=== PATIENT | female | born 1940 | race Caucasian/White ===

== ENCOUNTER 2017-12-07 14:49 | Emergency (ER) | payer MEDICARE, BC ==
--- NOTE | 2017-12-07 16:20 | RAD ---
INDICATION: Hypertension in a dialysis patient COMPARISON: Chest x-ray dated April 29, 2015 TECHNIQUE: Single AP portable view of the chest was obtained. FINDINGS: Image quality is compromised due to the relative inferiority of a portable chest x-ray. There has been interval removal of the right internal jugular vein hemodialysis catheter. The heart and mediastinum exhibit normal size and contour. The lungs are grossly clear. There is no evidence of a large pleural effusion. Visualized bones are normal for the patient's age. IMPRESSION: No radiographic evidence for acute cardiopulmonary abnormality on this portable chest x-ray.
[2017-12-07 16:35] LABS: ABS Basophils 0.1 10^3/ul (0-0.2); ABS Eosinophils 0.1 10^3/ul (0-0.6); ABS Lymphocytes 1.7 10^3/ul (1.0-4.8); ABS Monocytes 0.6 10^3/ul (0-0.8); ABS Neutrophils 5.2 10^3/ul (1.5-7.7); ABS Nucleated RBC 0 10^3/ul; Eosinophil % 1.8 % (0-6); Hematocrit 30 % (35-47); Hemoglobin 10.4 g/dl (12.0-16.0); Lymphocyte % 22.2 % (25-47); Mean Corpuscular HGB Conc 35 g/dl (31-36); Mean Corpuscular Hemoglobin 32 pg (27-31); Mean Corpuscular Volume 94 fL (80-97); Mean Platelet Volume 8 um3 (7.4-10.4); Nucleated Red Blood Cells % 0.1; Platelet Count 158 10^3/ul (150-450); Red Cell Distribution Width 13 % (10.5-15); White Blood Count 7.7 10^3/ul (3.5-10.8)
[2017-12-07 16:47] LABS: EGFR Non-African American 12.4 (>60)
[2017-12-07 16:56] LABS: INR 0.93 (0.77-1.02)
[2017-12-07] MEDS ORDERED: Labetalol IV* 5 MG/ML 20 ML VIAL IV PUSH ONE ×3 (17:13→18:22)
[2017-12-07] MEDS ORDERED: oxyCODONE/Acetamin 5/325 MG* TAB PO ONE (17:48)
[2017-12-07 19:49] VITALS: BP 169/61
--- NOTE | 2017-12-07 19:51 | ED ---
Luis Ojeda Angela, scribed for Kathie Pacheco MD on 12/07/17 at 1548 . Hypertension - HPI Summary HPI Summary: This pt is a 77 y/o female presenting to [facility] c/o hypertension, headache, and feeling hot today. Pt is a dialysis pt, Dr. Cates is her economics instructor. Pt last had dialysis today and has felt ill since she finished treatment. Pt went in with 72.2 kg and came out with 71.8 kg after dialysis. Pt notes her dry weight is a little lower usually. She states she did not go to dialysis 3 days ago ( 12/04/17) due to the bad weather. Pt today denies chest pain. Pt has peritoneal dialysis on Tuesdays, , and Saturdays. She is scheduled to have a fistulagram on 2017. PMHx: end stage renal disease, perforated diverticulosis. Pt reports she started peritoneal dialysis in 2011. She denies any hx of CHF. No kidney disease in her family history. - History of Current Complaint Chief Complaint: EDHypertension Stated Complaint: HIGH BP Time Seen by Provider: 12/07/17 15:44 Hx Obtained From: Patient Onset/Duration: Started Hours Ago, Still Present Timing: Lasting Hours Aggravating Factor(s): Other: - dialysis today Alleviating Factor(s): Nothing Associated Signs & Symptoms: Headaches, Other: - elevated BP - Allergies/Home Medications Allergies/Adverse Reactions: Allergies Allergy/AdvReac Type Severity Reaction Status Date / Time Bromfenac [From Duract] Allergy Unknown UNK Verified 12/07/17 14:57 Adhesive Tape [Paper Tape] Allergy SKIN Verified 12/07/17 14:57 IRRITATION Aloe Allergy Itching Verified 12/07/17 14:57 Hepatitis B Antigen Allergy SHAKINESS Verified 12/07/17 14:57 [From Recombivax-HB] TEMARIL Allergy Intermediate SYNCOPE Uncoded 12/07/17 14:57 PMH/Surg Hx/FS Hx/Imm Hx Endocrine/Hematology History: Reports: Hx Diabetes - ON INSULIN FOR, Hx Thyroid Disease - HYPOTHYROID, Hx Anemia Cardiovascular History: Reports: Hx Hypertension - ON MEDICATION FOR, Hx Peripheral Vascular Disease - Vasculitis, Other Cardiovascular Problems/ Disorders - VASCULITIS- LEGS Respiratory History: Reports: Hx Asthma, Other Respiratory Problems/Disorders - Bronchitis in past; not chronic GI History: Reports: Hx Ulcer - HX OF BLEEDING ULCER ABOUT 5 YEARS AGO History: Reports: Hx Chronic Renal Failure - W/ Peritoneal Dialysis nightly Musculoskeletal History: Reports: Hx Bursitis - LEFT HIP, Other Musculoskeletal History - Sciatica Sensory History: Reports: Hx Cataracts, Hx Contacts or Glasses - READING Denies: Hx Hearing Aid Opthamlomology History: Reports: Hx Cataracts, Hx Contacts or Glasses - READING - Cancer History Hx Chemotherapy: No Hx Radiation Therapy: No - Surgical History Surgery Procedure, Year, and Place: Cholecystectomy AND APPENDECTOMY-- [place]. [id number]. KIDNEY BIOPSY AND BONE MARROW BIOPSY. EXPLORATORY AND COLOSTOMY-03/2015 Hx Anesthesia Reactions: No Infectious Disease History: No Infectious Disease History: Reports: Hx Hepatitis - A TEENAGER Denies: Traveled Outside the [place] in Last 30 Days - Family History Known Family History: Positive: Diabetes, Other - CA Negative: Renal Disease - no FHx reported. - Social History Alcohol Use: Occasionally Substance Use Type: Reports: None Smoking Status (MU): Former Smoker Amount Used/How Often: <1 PPD X 7 YEARS Have You Smoked in the Last Year: No Review of Systems Constitutional: Other - feeling hot Negative: Fever Cardiovascular: Other - Hypertension Negative: Chest Pain Positive: Headache All Other Systems Reviewed And Are Negative: Yes Physical Exam - Summary Physical Exam Summary: Appearance: Ill-appearing, no pain distress, Well-nourished Skin: Warm, color reflects adequate perfusion Head: Normal Head/Face inspection Eyes: Conjunctiva clear ENT: Normal ENT inspection Neck: Supple, no nodes, no JVD Respiratory: Lungs clear, Normal breath sounds, no respiratory distress Cardio: RRR, No murmur, pulses normal, brisk capillary refill Abdomen: soft, nontender Bowel sounds: present Musculoskeletal: Strength Intact/ ROM intact. No calf tenderness. No edema. Left arm: good thrill and bruit. Neuro: Alert, muscle tone normal, facial symmetry, speech normal, sensory/motor intact Psychological: Normal Triage Information Reviewed: Yes Vital Signs On Initial Exam: Initial Vitals Temp Pulse Resp BP Pulse Ox 97.4 F 59 20 216/80 96 12/07/17 14:54 12/07/17 14:54 12/07/17 14:54 12/07/17 14:54 12/07/17 14:54 Vital Signs Reviewed: Yes Diagnostics - Vital Signs Vital Signs Temp Pulse Resp BP Pulse Ox 12/07/17 14:54 97.4 F 59 20 216/80 96 - Laboratory Lab Results: Lab Results 12/07/17 12/07/17 12/07/17 Range/Units 16:16 16:16 16:16 WBC 7.7 (3.5-10.8) 10^3/ul RBC 3.20 L (4.0-5.4) 10^6/ul Hgb 10.4 L (12.0-16.0) g/dl Hct 30 L (35-47) % MCV 94 (80-97) fL MCH 32 H (27-31) pg MCHC 35 (31-36) g/dl RDW 13 (10.5-15) % Plt Count 158 (150-450) 10^3/ul MPV 8 (7.4-10.4) um3 Neut % (Auto) 67.2 (38-83) % Lymph % (Auto) 22.2 L (25-47) % Jennings % (Auto) 8.1 (1-9) % Eos % (Auto) 1.8 (0-6) % Baso % (Auto) 0.7 (0-2) % Absolute Neuts (auto) 5.2 (1.5-7.7) 10^3/ul Absolute Lymphs (auto) 1.7 (1.0-4.8) 10^3/ul Absolute Monos (auto) 0.6 (0-0.8) 10^3/ul Absolute Eos (auto) 0.1 (0-0.6) 10^3/ul Absolute Basos (auto) 0.1 (0-0.2) 10^3/ul Absolute Nucleated RBC 0 10^3/ul Nucleated RBC % 0.1 INR (Anticoag Therapy) 0.93 (0.77-1.02) APTT 27.0 (26.0-36.3) seconds Sodium (133-145) mmol/L Potassium (3.5-5.0) mmol/L Chloride (101-111) mmol/L Carbon Dioxide (22-32) mmol/L Anion Gap (2-11) mmol/L BUN (6-24) mg/dL Creatinine (0.51-0.95) mg/dL Est GFR ( Amer) (>60) Est GFR (Non-Af Amer) (>60) BUN/Creatinine Ratio (8-20) Glucose (70-100) mg/dL Lactic Acid (0.5-2.0) mmol/L Calcium (8.6-10.3) mg/dL Total Bilirubin (0.2-1.0) mg/dL AST (13-39) U/L ALT (7-52) U/L Alkaline Phosphatase (34-104) U/L Total Creatine Kinase (10-223) U/L CK-MB (CK-2) (0.6-6.3) ng/mL Troponin I (<0.04) ng/mL B-Natriuretic Peptide 543 H ( - 100) pg/mL Total Protein (6.4-8.9) g/dL Albumin (3.2-5.2) g/dL Globulin (2-4) g/dL Albumin/Globulin Ratio (1-3) Influenza A (Rapid) (Negative) Influenza B (Rapid) (Negative) 12/07/17 12/07/17 12/07/17 Range/Units 16:16 16:16 17:45 WBC (3.5-10.8) 10^3/ul RBC (4.0-5.4) 10^6/ul Hgb (12.0-16.0) g/dl Hct (35-47) % MCV (80-97) fL MCH (27-31) pg MCHC (31-36) g/dl RDW (10.5-15) % Plt Count (150-450) 10^3/ul MPV (7.4-10.4) um3 Neut % (Auto) (38-83) % Lymph % (Auto) (25-47) % Jennings % (Auto) (1-9) % Eos % (Auto) (0-6) % Baso % (Auto) (0-2) % Absolute Neuts (auto) (1.5-7.7) 10^3/ul Absolute Lymphs (auto) (1.0-4.8) 10^3/ul Absolute Monos (auto) (0-0.8) 10^3/ul Absolute Eos (auto) (0-0.6) 10^3/ul Absolute Basos (auto) (0-0.2) 10^3/ul Absolute Nucleated RBC 10^3/ul Nucleated RBC % INR (Anticoag Therapy) (0.77-1.02) APTT (26.0-36.3) seconds Sodium 133 (133-145) mmol/L Potassium 3.2 L (3.5-5.0) mmol/L Chloride 89 L (101-111) mmol/L Carbon Dioxide 35 H (22-32) mmol/L Anion Gap 9 (2-11) mmol/L BUN 27 H (6-24) mg/dL Creatinine 3.56 H (0.51-0.95) mg/dL Est GFR ( Amer) 15.9 (>60) Est GFR (Non-Af Amer) 12.4 (>60) BUN/Creatinine Ratio 7.6 L (8-20) Glucose 98 (70-100) mg/dL Lactic Acid 0.7 (0.5-2.0) mmol/L Calcium 8.4 L (8.6-10.3) mg/dL Total Bilirubin 0.40 (0.2-1.0) mg/dL AST 16 (13-39) U/L ALT 10 (7-52) U/L Alkaline Phosphatase 82 (34-104) U/L Total Creatine Kinase 40 (10-223) U/L CK-MB (CK-2) 1.1 (0.6-6.3) ng/mL Troponin I 0.01 (<0.04) ng/mL B-Natriuretic Peptide ( - 100) pg/mL Total Protein 6.8 (6.4-8.9) g/dL Albumin 3.6 (3.2-5.2) g/dL Globulin 3.2 (2-4) g/dL Albumin/Globulin Ratio 1.1 (1-3) Influenza A (Rapid) Negative (Negative) Influenza B (Rapid) Negative (Negative) Result Diagrams: 12/07/17 16:16 12/07/17 16:16 Lab Statement: Any lab studies that have been ordered have been reviewed, and results considered in the medical decision making process. - Radiology Chest XR Xray Interpretation: No Acute Changes - IMPRESSION: No radiographic evidence for acute cardiopulmonary abnormality on this portable chest x-ray. Dr. Pacheco has reviewed this radiology report. Radiology Interpretation Completed By: Radiologist - EKG 15:52 Cardiac Rate: NL EKG Rhythm: Sinus Rhythm - at [address] Segment: Non-Specific Ectopy: None EKG Interpretation: with 4:1 block. Nml IVCT. prolonged QTc (507). Left axis (- 16). EKG Comparison: No Significant Change - no significnat change compared to . Re-Evaluation - Re-Evaluation First Eval Re-Evaluation Time: 17:24 Comment: I discussed Dr. Cates's recommendations with the pt and family. She states her headache has resolved currently. Blood pressure currently is 203/71. Hypertension Course/Dx - Course Course Of Treatment: Pt medications reviewed this visit. Allergies noted. High blood pressure noted. I discussed pt care with Dr. Cates, economics instructor, who reports if blood pressure is under 170 pt can be discharged home. He also states to give the pt pain relief for headache. In the ED course, the pt was given 30 mg Labetalol IV. Pt's blood pressure after Labetalol was 169/61. Pt states her headache has resolved as well. Therefore, pt will be discharged to home. - Diagnoses Provider Diagnoses: Elevate BP under poor control - Physician Notifications Discussed Care Of Patient With: Brandan Cates Time Discussed With Above Provider: 17:18 Instructed by Provider To: Other - I discussed pt care with Dr. Cates, economics instructor, who reports if blood pressure is under 170 pt can be discharged home. Discharge - Discharge Plan Condition: Stable Disposition: HOME Patient Education Materials: Hypertension (ED) Referrals: Erica Vidal MD [Primary Care Provider] - 2 Days Additional Instructions: Keep your scheduled appointment for dialysis. We have sent you home with a percocet tablet that you may take if your headache returns. We gave you labetalol 30mg total in an IV to lower your blood pressure. Your flu swab was negative. Return to the ER if you have any new or worsening symptoms. The documentation as recorded by the Luis barnett Angela accurately reflects the service I personally performed and the decisions made by me, Kathie Pacheco MD.
== END 2017-12-07 19:48 | disposition home or self-care (01) ==
LOC: ED 14:49
DX: I12.0 Hypertensive chronic kidney disease with stage 5 chronic kidney disease or end stage renal disease (principal); E11.22 Type 2 diabetes mellitus with diabetic chronic kidney disease; N18.6 End stage renal disease; Z99.2 Dependence on renal dialysis; Z79.4 Long term (current) use of insulin; Z87.891 Personal history of nicotine dependence; Z88.8 Allergy status to other drugs, medicaments and biological substances
CPT/HCPCS: 36415; 71045; 80053; 82550; 82553; 83605; 83880; 84484; 85025; 85610; 85730; 87502; 93005; 96374; 96376; 99283

== ENCOUNTER 2018-08-05 14:35 | Inpatient (IN) | payer MEDICARE, BC ==
--- NOTE | 2018-08-05 15:24 | ED ---
Shortness of Breath - HPI Summary HPI Summary: This patient is a 77 year old F presenting to [facility] accompanied by with her with a chief complaint of SOB since last night at 1900. The patient rates the pain 0/10 in severity. Patient reports cough for the last 3 weeks. Patient denies fever and chills. Pt is on dialysis MWF and just had a round today. No hx of asthma and COPD. - History of Current Complaint Chief Complaint: EDShortnessOfBreath Time Seen by Provider: 08/05/18 15:14 Hx Obtained From: Patient Onset/Duration: Still Present Timing: Constant Current Severity: Mild Dyspnea At: Rest Associated Signs & Symptoms: Negative - fever and chills, Cough (Nonproductive) - Allergy/Home Medications Allergies/Adverse Reactions: Allergies Allergy/AdvReac Type Severity Reaction Status Date / Time Adhesive Tape [Paper Tape] Allergy SKIN Verified 12/07/17 14:57 IRRITATION aloe Allergy Itching Verified 08/05/18 15:20 bromfenac Allergy Unknown Verified 08/05/18 15:21 Reaction Details hepatitis B virus vaccine, Allergy Unknown Verified 08/05/18 15:21 recombin Reaction Details TEMARIL Allergy Intermediate SYNCOPE Uncoded 12/07/17 14:57 Home Medications: Home Medications Atorvastatin* [Lipitor*] 40 mg PO DAILY 08/05/18 [History Confirmed 08/05/18] Cinacalcet TAB* [Sensipar TAB*] 60 mg PO DAILY 08/05/18 [History Confirmed 08/05] Furosemide TAB* [Lasix TAB*] 40 mg PO DAILY 08/05/18 [History Confirmed 08/05/18 ] Insulin GLARGINE(*) [Lantus(*)] 21 units SUBCUT DAILY 08/05/18 [History Confirmed 08/05/18] Insulin LISPRO* [HumaLOG*] 4 units SUBCUT 1700 08/05/18 [History Confirmed 08/05] Levothyroxine TAB* [Synthroid TAB*] 100 mcg PO DAILY 08/05/18 [History Confirmed 08/05/18] Metoprolol Succinate XL TAB* [Toprol XL TAB*] 25 mg PO QAM 08/05/18 [History Confirmed 08/05/18] Metoprolol Succinate XL TAB* [Toprol XL TAB*] 50 mg PO QPM 08/05/18 [History Confirmed 08/05/18] NIFEdipine ER TAB* [Procardia Xl TAB*] 60 mg PO DAILY 08/05/18 [History Confirmed 08/05/18] Omeprazole CAP* [Prilosec CAP* 20 MG] 20 mg PO DAILY 08/05/18 [History Confirmed 08/05/18] hydrALAZINE TAB* [Apresoline TAB*] 20 mg PO TID 08/05/18 [History Confirmed ] hydrOXYzine HCL TAB* [Atarax 10 MG TAB*] 10 mg PO DAILY 08/05/18 [History Confirmed 08/05/18] PMH/Surg Hx/FS Hx/Imm Hx Endocrine/Hematology History: Reports: Hx Diabetes - ON INSULIN FOR, Hx Thyroid Disease - HYPOTHYROID, Hx Anemia Cardiovascular History: Reports: Hx Hypertension - ON MEDICATION FOR, Hx Peripheral Vascular Disease - Vasculitis, Other Cardiovascular Problems/ Disorders - VASCULITIS- LEGS Respiratory History: Reports: Hx Asthma, Other Respiratory Problems/Disorders - Bronchitis in past; not chronic GI History: Reports: Hx Ulcer - HX OF BLEEDING ULCER ABOUT 5 YEARS AGO History: Reports: Hx Chronic Renal Failure - W/ Peritoneal Dialysis nightly Musculoskeletal History: Reports: Hx Bursitis - LEFT HIP, Other Musculoskeletal History - Sciatica Sensory History: Reports: Hx Cataracts, Hx Contacts or Glasses - READING Denies: Hx Hearing Aid Opthamlomology History: Reports: Hx Cataracts, Hx Contacts or Glasses - READING - Cancer History Hx Chemotherapy: No Hx Radiation Therapy: No - Surgical History Surgery Procedure, Year, and Place: Cholecystectomy AND APPENDECTOMY-- [place]. [id number]. KIDNEY BIOPSY AND BONE MARROW BIOPSY. EXPLORATORY AND COLOSTOMY-03/2015 Hx Anesthesia Reactions: No Infectious Disease History: No Infectious Disease History: Reports: Hx Hepatitis - A TEENAGER Denies: Traveled Outside the [place] in Last 30 Days - Family History Known Family History: Positive: Diabetes, Other - CA Negative: Renal Disease - no FHx reported. - Social History Alcohol Use: Occasionally Substance Use Type: Reports: None Smoking Status (MU): Former Smoker Amount Used/How Often: <1 PPD X 7 YEARS Have You Smoked in the Last Year: No Review of Systems Negative: Fever, Chills Positive: Shortness Of Breath, Cough All Other Systems Reviewed And Are Negative: Yes Physical Exam - Summary Physical Exam Summary: VITAL SIGNS: Reviewed. GENERAL: Patient is a well-developed and nourished female who is lying comfortable in the stretcher. Patient is not in any acute respiratory distress. HEAD AND FACE: No signs of trauma. No ecchymosis, hematomas or skull depressions. No sinus tenderness. EYES: PERRLA, EOMI x 2, No injected conjunctiva, no nystagmus. EARS: Hearing grossly intact. Ear canals and tympanic membranes are within normal limits. MOUTH: Oropharynx within normal limits. NECK: Supple, trachea is midline, no adenopathy, no JVD, no carotid bruit, no c- spine tenderness, neck with full ROM. CHEST: Symmetric, no tenderness at palpation LUNGS: decreased breath sounds bilaterally. Rales in both bases. CVS: Regular rate and rhythm, S1 and S2 present, no murmurs or gallops appreciated. ABDOMEN: Soft, non-tender. No signs of distention. No rebound no guarding, and no masses palpated. There is a colostomy bag in the LLQ EXTREMITIES: FROM in all major joints, plus 1 pitting edema in both legs. NEURO: Alert and oriented x 3. No acute neurological deficits. Speech is normal and follows commands. SKIN: Dry and warm Triage Information Reviewed: Yes Vital Signs On Initial Exam: Initial Vitals Temp Pulse Resp BP Pulse Ox 97.9 F 71 22 188/82 89 08/05/18 14:37 08/05/18 14:37 08/05/18 14:37 08/05/18 14:37 08/05/18 14:37 Vital Signs Reviewed: Yes Diagnostics - Vital Signs Vital Signs Temp Pulse Resp BP Pulse Ox 08/05/18 14:37 97.9 F 71 22 188/82 89 - Laboratory Result Diagrams: 08/05/18 15:22 08/05/18 15:22 Lab Statement: Any lab studies that have been ordered have been reviewed, and results considered in the medical decision making process. - Radiology CXR Radiology Interpretation Completed By: Radiologist - CHEST X-RAY FINDINGS ARE MOST INDICATIVE OF CARDIOGENIC PULMONARY EDEMA WITH SMALL BIBASILAR PLEURAL EFFUSIONS. ED physician has reviewed this radiology report. Course/Dx - Course Assessment/Plan: This patient is a 77-year-old female who presents to the emergency department with a chief complaint of having shortness of breath. The patient has history of end-stage renal disease currently in hemodialysis 3 times a week. Wednesday, Wednesday and Wednesday. Today after dialysis the patient continued to have shortness of breath therefore the patient was sent to the emergency department. Patient has been having also a dry cough for about a month. Denies any fever or chills. Denies any chest pain or palpitations. Test results without any significant abnormality except for chronic normocytic normochromic anemia, potassium at 3, carbon dioxide 37, creatinine of 3.18, glucose of 129 and BNP 1679. Chest x-ray impression: Findings indicative of cardiogenic pulmonary edema with a small bite basilar pleural effusion. In the ED course the patient was given Lasix. At this time I discussed my physical exam and findings with Dr. Barros who accepted the patient for admission. She is hemodynamically stable alert and oriented 3. - Diagnoses Provider Diagnoses: CHF exacerbation, Pleural effusion - Physician Notifications Discussed Care of Patient With: Gaby Barros Time Discussed With Above Provider: 16:29 Instructed by Provider To: Admit As Inpatient Discharge - Sign-Out/Discharge Documenting (check all that apply): Patient Departure - admitted - Discharge Plan Condition: Fair Disposition: ADMITTED TO [facility] Referrals: Erica Vidal MD [Primary Care Provider] - - Billing Disposition and Condition Condition: FAIR Disposition: Admitted to [facility] - Attestation Statements Document Initiated by Sissy: Yes Documenting Scribe: Driss You Provider For Whom Sissy is Documenting (Include Credential): Dillon Craven MD Scribe Attestation: Driss Ojeda scribed for Dillon Craven MD on 08/05/18 at 1633. Scribe Documentation Reviewed: Yes Provider Attestation: The documentation as recorded by the Driss barnett accurately reflects the service I personally performed and the decisions made by me, Dillon Craven MD
[2018-08-05 15:33] LABS: ABS Basophils 0.1 10^3/ul (0-0.2); ABS Eosinophils 0.2 10^3/ul (0-0.6); ABS Lymphocytes 1.9 10^3/ul (1.0-4.8); ABS Monocytes 0.7 10^3/ul (0-0.8); ABS Neutrophils 5.6 10^3/ul (1.5-7.7); ABS Nucleated RBC 0 10^3/ul; Eosinophil % 2.7 % (0-6); Hematocrit 33 % (35-47); Hemoglobin 11.1 g/dl (12.0-16.0); Lymphocyte % 22.6 % (25-47); Mean Corpuscular HGB Conc 33 g/dl (31-36); Mean Corpuscular Hemoglobin 31 pg (27-31); Mean Corpuscular Volume 94 fL (80-97); Mean Platelet Volume 7.4 um3 (7.4-10.4); Nucleated Red Blood Cells % 0; Platelet Count 225 10^3/ul (150-450); Red Blood Count 3.54 10^6/ul (4.00-5.40); Red Cell Distribution Width 14 % (10.5-15); White Blood Count 8.6 10^3/ul (3.5-10.8)
[2018-08-05 15:40] LABS: INR 1.02 (0.77-1.02)
[2018-08-05 15:55] LABS: EGFR Non-African American 14.1 (>60)
--- NOTE | 2018-08-05 15:57 | RAD ---
INDICATION: Cough COMPARISON: Similar chest x-ray December 07, 2017 TECHNIQUE: PA and lateral views of the chest were obtained. FINDINGS: There appears to be mild interval development of mild cardiomegaly. There are patchy densities overlying the bilateral lungs. There is bibasilar costophrenic angle blunting on the AP view. On the lateral view there is layering density overlying the dependent posterior and inferior thorax consistent with fluid. Visualized bones are normal for the patient's age. There is no radiographic evidence of free air beneath the diaphragm IMPRESSION: CHEST X-RAY FINDINGS ARE MOST INDICATIVE OF CARDIOGENIC PULMONARY EDEMA WITH SMALL BIBASILAR PLEURAL EFFUSIONS.
[2018-08-05] MEDS ORDERED: Furosemide IV* 10 MG/ML VIAL (40 MG) IV SLOW PU ONE (16:22)
[2018-08-05] MEDS ORDERED: Potassium Chlor TAB* 20 MEQ TAB.ER PO ONE (16:24)
[2018-08-05] MEDS ORDERED: Labetalol IV* 5 MG/ML 20 ML VIAL IV PUSH ONE (17:13)
[2018-08-05] MEDS ORDERED: Al Hydrox/Mg Hydrox/Simet LIQ* 30 ML UDC PO PRN (18:35)
[2018-08-05] MEDS ORDERED: Magnesium Hydroxide LIQ* 30 ML UDC PO PRN (18:35)
[2018-08-05] MEDS ORDERED: Dextrose 50% Syringe 50 ML* 25 GM/50 ML SYRINGE IV PUSH PRN (20:05)
[2018-08-05] MEDS: Heparin VIAL(*) 5000 UNITS/ML VIAL (FIVE THOUSAND) SUBCUT SCH (20:13)
[2018-08-05] MEDS: Vitamin E CAP* 400 UNIT PO SCH (20:13)
[2018-08-05] MEDS ORDERED: hydrALAZINE TAB* 10 MG PO SCH (21:00)
--- NOTE | 2018-08-05 23:25 | HP ---
AMENDED REPORT NOW INCLUDES COSIGNER DESIGNATION - ESIGNED BEFORE ADJUSTMENT CC: Dr. Erica Vidal * HISTORY AND PHYSICAL: DATE OF ADMISSION: 08/05/18 PROVIDER: Maribell Christianson NP PRIMARY CARE PROVIDER: Dr. Vidal. PRIMARY MEDICAL SERVICES ASSISTANT: Brandan Cates MD ATTENDING PHYSICIAN WHILE IN THE HOSPITAL: Dr. Nayely Lemon * (report dictated by Maribell Christianson NP) CHIEF COMPLAINT: Shortness of breath. HISTORY OF PRESENT ILLNESS: Ms. Brady is a 77-year-old female, who carries a past medical history significant for end-stage renal disease, on dialysis, Wednesday, Wednesday, Wednesday; diabetes; hypertension; hypothyroid, who presented to the emergency room today for increased shortness of breath. The patient reports that she went to dialysis today and during yesterday and last evening, she developed some shortness of breath that progressively gotten worse. She does report that she went to dialysis today and tolerated the dialysis well. She does report that she was short of breath prior to the dialysis, but then the shortness of breath improved slightly. She reports that she was unable to sleep last night due to the shortness of breath and that she sat up in the chair for a while and then laid back in her bed. She was able to lay in the bed on 1 pillow, but remained shortness of breath throughout the night and she does report a dry cough x3 weeks. She denies any fevers, chills. Denies any recent sick contacts. Denies any nausea, vomiting, or diarrhea. She denies any swelling. She denies any history of congestive heart failure. She does report increased shortness of breath with exertion that started yesterday. She has no other complaints. Given her increased shortness of breath and hypoxia on room air, we were asked to see and evaluate her in the emergency room. While in the emergency room, the patient had routine lab work drawn. Her potassium was 3.0. Her chest x-ray showed pulmonary edema with bilateral small bibasilar pleural effusions. Again, the patient was found to have room air O2 saturation on admission to the ER of 89%. Due to her shortness of breath and hypoxia, we were asked to see her and evaluate her for admission. PAST MEDICAL HISTORY: Significant for: 1. End-stage renal disease, on dialysis. 2. Diabetes. 3. Hypertension. 4. Hypothyroid. PAST SURGICAL HISTORY: Significant for: 1. . 2. Cholecystectomy. 3. Colostomy. 4. Appendectomy. HOME MEDICATIONS: Include: 1. Metoprolol 50 mg q.p.m. 2. Metoprolol 25 mg p.o. q.a.m. 3. Nifedipine 60 mg p.o. daily. 4. Sensipar tab 60 mg p.o. daily. 4. Atorvastatin 40 mg p.o. daily. 5. Hydroxyzine 10 mg p.o. daily. 6. Lantus 21 units subcu daily. 7. Lispro 4 units subcu at 1700. 8. Lispro 2 units subcu at noon. 9. Sevelamer 1600 mg p.o. p.c. 10. Aspirin 81 mg p.o. daily. 11. Vitamin E capsule 400 units p.o. b.i.d. 12. Folic acid, Nephro-Juan Carlos 1 tab p.o. daily. 13. Omeprazole 20 mg p.o. daily. 14. Hydralazine 20 mg p.o. t.i.d. 15. Levothyroxine 100 mcg p.o. daily. 16. Furosemide 40 mg p.o. daily. ALLERGIES TO MEDICATIONS: 1. ADHESIVE TAPE. 2. ALOE. 3. BROMFENAC. 4. Temaril 5. HEPATITIS B VACCINE. FAMILY HISTORY: No reported history of coronary artery disease. She does report father with the history of diabetes. Does report brother and father with prostate cancer. Mother with lung cancer and sister had esophageal cancer. SOCIAL HISTORY: She reports she used to smoke. She smoked for approximately 7 to 8 years, quit in 1965. She reports rare alcohol use. Denies any illicit drug use. Surrogate decision maker in the event she is unable to make her own decisions is her , Lamberto Brady. His number is [phone]. She is a full code. REVIEW OF SYSTEMS: There was no documented fever. There has been no significant weight change. There was no double vision. No ear discharge. Denies any rhinorrhea. Denies any sore throat. Denies any chest pain. She does report some nocturnal dyspnea and she reports increased exertional shortness of breath, dry nonproductive cough x3 weeks. She denies any abdominal pain. No nausea, vomiting, or diarrhea. Denies any dysuria or urinary frequency. She denies any loss of consciousness. Denies any pruritus or skin ulcerations. Review of 14 systems was completed and all others were negative. PHYSICAL EXAMINATION GENERAL: At this time, Ms. Brady is a 77-year-old female, who appears mildly shortness of breath resting on the edge of the bed. VITAL SIGNS: Blood pressure was 177/67, heart rate was 73, temperature was 98.4 , O2 saturation 96% on 3 L, respirations were 24. HEENT: Head is atraumatic and normocephalic. Eyes: EOMs are intact. Sclerae anicteric and not pale. Oral mucosa appeared to be moist. There is no oropharyngeal erythema. NECK: Supple. LUNGS: With crackles in the bases bilaterally. There are no wheezes or rhonchi. CARDIAC: S1 and S2. Regular rate and rhythm. There are no murmurs, rubs, or gallop. ABDOMEN: Soft and nontender. Bowel sounds are present x4. EXTREMITIES: Pulses are +2 bilaterally. She is able to move all 4 extremities with 5/5 strength. NEUROLOGIC: She is awake, alert, oriented x3. Her speech is clear. There are no gross focal deficits. SKIN: Intact. DIAGNOSTIC STUDIES AND LABORATORY DATA: WBCs were 8.6, RBCs 3.54, hemoglobin is 11.1, hematocrit was 33, platelet count was 225. INR was 1.02. APTT was 28.1. Sodium 138, potassium was 3.0, chloride was 93, carbon dioxide was 37, anion gap of 8, BUN was 21, creatinine 3.18 which is at her baseline. Glucose was 129. Lactic acid was 0.8. Calcium 9.4. ASTs were 15, ALTs were 8, alkaline phosphatase was 84, troponin was 0.01, BNP was 16.79. EKG is pending. Chest x-ray, radiologist impression: Chest x-ray findings are most indicative of cardiogenic pulmonary edema with small bibasilar pleural effusions. ASSESSMENT AND PLAN: Ms. Brady is a 77-year-old female who presented to the emergency room today with complaints of increased shortness of breath which continued after receiving dialysis today. We were asked to see and evaluate her due to shortness of breath and hypoxia on room air. 1. Hypoxic respiratory failure. The patient's O2 saturation on room air was 89 %. She was tachypneic and chest x-ray showed pulmonary edema. She was given Lasix 40 mg in the emergency room x1 and placed on oxygen at 3 L. She does continue to be tachypneic with respirations at a rate of 24. We will continue IV Lasix at 40 mg daily. I did consult Dr. Cates, we will place her on her a fluid restriction at 1500 cc. She will be placed on 2 g sodium and 2 g potassium diet. I will get a transthoracic echocardiogram on her as well. She has an EKG that is currently pending. She is afebrile. 2. End-stage renal disease. She does receive dialysis Wednesday, Wednesday and Wednesday. She did receive dialysis today. Dr. Cates was contacted about her admission. 3. Hypertension. We will continue her on her home hypertension medications of metoprolol and hydralazine. She will also get hydralazine p.r.n. for systolic blood pressure greater than 180. 4. Diabetes. We will continue Lantus at 24 units subcu daily as this is her current home dose and she will be placed on a lispro sliding scale with Accu- Cheks a.c. and h.s. 5. Hypothyroidism. We will continue on her levothyroxine. 6. DVT prophylaxis: She will be placed on heparin subcu. 7. Fluids, electrolytes, and nutrition: She will be placed on a 2 g sodium, 2 g potassium diet with 1500 cc fluid restriction. TIME SPENT: Time spent on this admission was approximately 60 minutes, greater than half of that time was spent [id number] with the patient obtaining my history and physical, the other half of the time was spent going over my plan of care with my patient and implementing my plan of care. I have discussed this with my attending, Dr. Nayely Lemon. She is in agreement with my plan. MARIBELL CHRISTIANSON, ATA [id number]/[facility] #: [id number] GEOVANNA
[2018-08-06] MEDS: Metoprolol Succinate XL TAB* 25 MG PO SCH (05:54)
[2018-08-06] MEDS: Levothyroxine TAB* 100 MCG TAB PO SCH (05:57)
[2018-08-06 05:58] LABS: EGFR Non-African American 9.4 (>60)
[2018-08-06] MEDS ORDERED: Furosemide TAB* 40 MG PO SCH (06:00)
[2018-08-06] MEDS: Heparin VIAL(*) 5000 UNITS/ML VIAL (FIVE THOUSAND) SUBCUT SCH ×3 (06:00→21:22)
[2018-08-06] MEDS: Omeprazole CAP* 20 MG PO SCH (07:12)
[2018-08-06] MEDS: hydrALAZINE TAB* 10 MG PO SCH ×3 (07:12→21:21)
[2018-08-06] MEDS: Vitamin E CAP* 400 UNIT PO SCH ×2 (07:50→21:21)
[2018-08-06] MEDS: Folic Acid TAB* 1 MG PO SCH (07:50)
[2018-08-06] MEDS: Aspirin 81 mg CHEW TAB* 81 MG TAB.CHEW PO SCH (07:50)
[2018-08-06] MEDS: Acetaminophen TAB* 325 MG PO PRN ×2 (07:50→21:34)
[2018-08-06] MEDS: Vitamin B Complex TAB PO SCH (07:50)
[2018-08-06] MEDS: hydrOXYzine HCL TAB* 10 MG PO SCH (07:50)
[2018-08-06] MEDS: Atorvastatin* 40 MG TAB PO SCH (07:50)
[2018-08-06] MEDS: Cinacalcet TAB* 30 MG PO SCH (07:51)
[2018-08-06] MEDS: Insulin LISPRO* 1 UNITS UNIT SUBCUT SCH ×3 (07:54→17:31)
[2018-08-06] MEDS: Sevelamer TAB* 800 MG PO SCH ×3 (08:54→17:31)
[2018-08-06] MEDS ORDERED: VIT B COMPLEX AND C PO SCH (09:00)
[2018-08-06] MEDS ORDERED: FOLIC ACID PO SCH (09:00)
[2018-08-06] MEDS ORDERED: NIFEdipine ER TAB* 60 MG PO SCH (09:00)
[2018-08-06] MEDS ORDERED: Furosemide IV* 10 MG/ML 2 ML VIAL (20 MG) IV ONE (12:00)
--- NOTE | 2018-08-06 13:18 | PN ---
Subjective Date of Service: 08/06/18 Interval History: Continues to c/o of shortness of breath worse with exertion. patient is lying flat in the bed. Denies any chest pain or shortness of breath. Denies abd pain n/v/d. continues to c/o dry non- productive cough. Family History: Unchanged from Admission Social History: Unchanged from Admission Past Medical History: Unchanged from Admission Objective Active Medications: Acetaminophen (Tylenol Tab*) 650 mg PO Q4H PRN PRN Reason: FEVER/PAIN Last Admin: 08/06/18 07:50 Dose: 650 mg Al Hydrox/Mg Hydrox/Simethicone (Maalox Plus*) 30 ml PO Q6H PRN PRN Reason: INDIGESTION Aspirin (Aspirin 81 Mg Chew Tab*) 81 mg PO DAILY [facility] Last Admin: 08/06/18 07:50 Dose: 81 mg Atorvastatin Calcium (Lipitor*) 40 mg PO DAILY [facility] Last Admin: 08/06/18 07:50 Dose: 40 mg Cinacalcet (Sensipar Tab*) 60 mg PO DAILY [facility] Last Admin: 08/06/18 07:51 Dose: 60 mg Dextrose (D50w Syringe 50 Ml*) 12.5 gm IV PUSH .FOR FS < 60 - SS PRN PRN Reason: FS < 60 Folic Acid (Folvite Tab*) 1 mg PO DAILY [facility] Last Admin: 08/06/18 07:50 Dose: 1 mg Furosemide (Lasix Tab*) 40 mg PO 0900 [facility] Last Admin: 08/06/18 05:56 Dose: 40 mg Heparin Sodium (Porcine) (Heparin Vial(*)) 5,000 units SUBCUT Q8HR [facility] Last Admin: 08/06/18 13:06 Dose: 5,000 units Hydralazine HCl (Apresoline Iv*) 10 mg IV SLOW PU Q6H PRN PRN Reason: SBP>180 Hydralazine HCl (Apresoline Tab*) 20 mg PO 0900,1400,2100 [facility] Last Admin: 08/06/18 13:07 Dose: 20 mg Hydroxyzine HCl (Atarax Tab*) 10 mg PO DAILY [facility] Last Admin: 08/06/18 07:50 Dose: 10 mg Insulin Glargine (Lantus(*)) 21 units SUBCUT BEDTIME [facility] Insulin Human Lispro (Humalog*) 0 units SUBCUT AC [facility]; Protocol Last Admin: 08/06/18 11:37 Dose: Not Given Levothyroxine Sodium (Synthroid Tab*) 100 mcg PO DAILY@0600 [facility] Last Admin: 08/06/18 05:57 Dose: 100 mcg Magnesium Hydroxide (Milk Of Magnjuancarlos Liq*) 30 ml PO Q4H PRN PRN Reason: CONSTIPATION Metoprolol Succinate (Toprol Xl Tab*) 25 mg PO 0900 [facility] Last Admin: 08/06/18 05:54 Dose: 25 mg Metoprolol Succinate (Toprol Xl Tab*) 50 mg PO QPM [facility] Nifedipine (Procardia Xl Tab*) 60 mg PO 0900 [facility] Omeprazole (Prilosec Cap*) 20 mg PO DAILY [facility] Last Admin: 08/06/18 07:12 Dose: 20 mg Sevelamer Carbonate (Renvela Tab*) 1,600 mg PO PC [facility] Last Admin: 08/06/18 12:49 Dose: 1,600 mg Vitamin B Complex/Vitamin E (B Complex-50*) 1 tab PO DAILY [facility] Last Admin: 08/06/18 07:50 Dose: 1 tab Vitamin E (Vitamin E Cap*) 400 unit PO BID [facility] Last Admin: 08/06/18 07:50 Dose: 400 unit Vital Signs - 8 hr 08/06/18 08/06/18 08/06/18 07:23 07:50 08:00 Temperature 97.9 F Pulse Rate 66 Respiratory 16 20 20 Rate Blood Pressure 150/55 (mmHg) O2 Sat by Pulse 96 Oximetry 08/06/18 08/06/18 10:34 11:14 Temperature 98.1 F Pulse Rate 64 Respiratory 17 24 Rate Blood Pressure 153/54 (mmHg) O2 Sat by Pulse 98 Oximetry Oxygen Devices in Use Now: Nasal Cannula Appearance: appears comfotabel resting in bed, no acute distress Eyes: No Scleral Icterus Ears/Nose/Mouth/Throat: Clear Oropharnyx, Mucous Membranes Moist Neck: NL Appearance and Movements; NL JVP, Trachea Midline Respiratory: Symmetrical Chest Expansion and Respiratory Effort, - - crackles in the bases bilat Cardiovascular: NL Sounds; No Murmurs; No JVD, No Edema Abdominal: NL Sounds; No Tenderness; No Distention Extremities: No Clubbing, Cyanosis, - - +1 pitting edema Skin: No Rash or Ulcers Neurological: Alert and Oriented x 3 Nutrition: Taking PO's Result Diagrams: 08/05/18 15:22 08/06/18 05:33 Assess/Plan/Problems-Billing Assessment: Ms. Brady is a 77 y.o female with a PMHX of ESRD on dialysis, DM, HTN, who presented to the ER for increased shortness of breath. Patient did receive dialysis on wednesday a scheduled. Chest x ray in the ER show pulmonary edema. - Patient Problems (1) SOB (shortness of breath) Current Visit: No Status: Acute Priority: Medium Code(s): R06.02 - SHORTNESS OF BREATH SNOMED Code(s): 895047514 Comment: SOB slightly improved today. CXR showed pulmonary edema yesterda- lung with crackles in the bases bilat. - Will check echo tomorrow AM - fluid restriction to 1500 cc/ day - 2 gm sodium/ 2 gram potassium diet - Lasix IV today (2) HTN (hypertension) Current Visit: No Status: Acute Code(s): I10 - ESSENTIAL (PRIMARY) HYPERTENSION SNOMED Code(s): 44044576 Comment: hydralazine at 20 mg po TID and 10 mg IV PRN hypertension BP improved, still mildy elevated- will continue to monitor (3) Diabetes Current Visit: No Status: Chronic Priority: Medium Code(s): E11.9 - TYPE 2 DIABETES MELLITUS WITHOUT COMPLICATIONS SNOMED Code(s): 36838436 Comment: [facility] [place] qachs c/w low dose lispro Lantus 24 units- home dose is 24-28 units at HS (4) ESRD (end stage renal disease) on dialysis Current Visit: No Status: Chronic Priority: Medium Code(s): N18.6 - END STAGE RENAL DISEASE; Z99.2 - DEPENDENCE ON RENAL DIALYSIS SNOMED Code(s): 173349634 Comment: - had HD on wednesday08/05/18 -Dr. dong aware of admission (5) DVT prophylaxis Current Visit: Yes Status: Acute Code(s): RDI4032 - SNOMED Code(s): 189929755 (6) Full code status Current Visit: Yes Status: Acute Code(s): Z78.9 - OTHER SPECIFIED HEALTH STATUS SNOMED Code(s): 061629715 Status and Disposition: inpatient
[2018-08-06 14:45] LABS: Urine Appearance Cloudy; Urine Blood Negative (Negative); Urine Color Yellow; Urine Ketones Negative (Negative); Urine Protein 3+(>=500 mg/dL) (Negative); Urine Red Blood Cell 1+(3-5/hpf) (Absent); Urine Specific Gravity 1.009 (1.010-1.030); Urine Urobilinogen Negative (Negative); Urine White Blood Cell 3+(>20/hpf) (Absent)
[2018-08-06] MEDS: Metoprolol Succinate XL TAB* 50 MG PO SCH (17:31)
[2018-08-06] MEDS: Furosemide IV* 10 MG/ML 10 ML VIAL (100 MG) IV SCH (17:31)
[2018-08-06] MEDS: Benzonatate CAP* 100 MG PO PRN (17:31)
[2018-08-06] MEDS ORDERED: Insulin GLARGINE(*) 1 UNITS UNIT SUBCUT SCH ×2 (21:00)
[2018-08-07] MEDS: hydrALAZINE IV* 20 MG/ML VIAL IV SLOW PU PRN ×2 (03:44→13:15)
[2018-08-07] MEDS: Heparin VIAL(*) 5000 UNITS/ML VIAL (FIVE THOUSAND) SUBCUT SCH ×2 (05:38→13:41)
[2018-08-07] MEDS: Levothyroxine TAB* 100 MCG TAB PO SCH (05:38)
[2018-08-07] MEDS: Metoprolol Succinate XL TAB* 25 MG PO SCH ×2 (06:04→07:50)
[2018-08-07] MEDS: hydrALAZINE TAB* 10 MG PO SCH ×3 (06:04→13:42)
[2018-08-07] MEDS: Insulin LISPRO* 1 UNITS UNIT SUBCUT SCH ×3 (07:39→16:45)
[2018-08-07] MEDS: Furosemide IV* 10 MG/ML 10 ML VIAL (100 MG) IV SCH (07:40)
[2018-08-07] MEDS: Sevelamer TAB* 800 MG PO SCH ×3 (07:40→17:39)
[2018-08-07] MEDS: Omeprazole CAP* 20 MG PO SCH (08:26)
[2018-08-07] MEDS: Vitamin E CAP* 400 UNIT PO SCH (08:26)
[2018-08-07] MEDS: Aspirin 81 mg CHEW TAB* 81 MG TAB.CHEW PO SCH (08:27)
[2018-08-07] MEDS: Cinacalcet TAB* 30 MG PO SCH (08:27)
[2018-08-07] MEDS: hydrOXYzine HCL TAB* 10 MG PO SCH (08:27)
[2018-08-07] MEDS: Acetaminophen TAB* 325 MG PO PRN ×2 (08:28→16:48)
[2018-08-07] MEDS: Atorvastatin* 40 MG TAB PO SCH (08:28)
[2018-08-07] MEDS: Vitamin B Complex TAB PO SCH (08:29)
[2018-08-07] MEDS: Folic Acid TAB* 1 MG PO SCH (08:29)
[2018-08-07] MEDS ORDERED: NIFEdipine ER TAB* 60 MG PO SCH (09:00)
--- NOTE | 2018-08-07 11:13 | ECHO ---
Patient: LEXX CRUZ [facility] Rec#: [id number] : 1940 Date: 08/07/2018 Age: 77y Height: 122 cm / 48.0 in Weight: 73.2 kg / 161.3 lbs Sex: F BSA: 1.45 Room#: 444 Admit Date#: 08/05/2018 Type: Inpatient Referring: Maribell Christianson Reading: Janny Doyle MD Supervisor Multifocal Lens: Hilda Sahu RDCS CC: Erica Vidal Transthoracic Echocardiogram Indication: SOB BP: 182/76 HR: 88 Rhythm: NSR Findings History: ESRD with dialysis,DM,HTN,hypothyroid,remote smoking history. Technical Comments: The study quality is good. Completed at 1040. Left Ventricle: The left ventricular chamber size is normal. Septal wall hypertrophy is observed. There is normal left ventricular systolic function. The estimated ejection fraction is 55-60%. Normal left ventricular diastolic filling is observed. Left Atrium: The left atrium is mildly dilated. Right Ventricle: The right ventricular cavity size is normal. The right ventricular global systolic function is normal. Right Atrium: The right atrium is mildly dilated. Aortic Valve: The aortic valve is trileaflet. There is no evidence of aortic regurgitation. There is no evidence of aortic stenosis. Mitral Valve: The mitral valve leaflets are mildly thickened. There is moderate mitral regurgitation. There is no evidence of mitral stenosis. Tricuspid Valve: The tricuspid valve leaflets are normal. There is mild to moderate tricuspid regurgitation. There is evidence of moderate pulmonary hypertension. There is no tricuspid stenosis. Pulmonic Valve: The pulmonic valve appears normal. There is no evidence of pulmonic regurgitation. There is no pulmonic stenosis. Pericardium: The pericardium appears normal. Aorta: There is no dilatation of the ascending aorta. There is no dilatation of the aortic arch. There is no dilation of the aortic root. Pulmonary Artery: The main pulmonary artery appears normal. Venous: The inferior vena cava appears normal in size. There is an approximate 50% respiratory change in the inferior vena cava dimension. Summary: There are changes noted when compared to the previous study done on 05/31/2011, MR is new. TR is more from mild then. PHTN is moderate now instead of mild then. Now there is no pericardial effusion instead of trace-small then. Conclusions The left ventricular chamber size is normal. There is normal left ventricular systolic function. The estimated ejection fraction is 55-60%. Normal left ventricular diastolic filling is observed. The left atrium is mildly dilated. The right atrium is mildly dilated. There is moderate mitral regurgitation. There is mild to moderate tricuspid regurgitation. There is evidence of moderate pulmonary hypertension. Measurements Name Value Normal Range RVIDd (AP) 2D 3 cm (0.9 - 2.6) RVDdMajor (2D) 3.7 cm (2.2 - 4.4) RAd ISD 4CH 5.1 cm (3.4 - 4.9) RA (A4C)W 4.2 cm (2.9 - 4.6) IVSd (2D) 1.1 cm (0.6 - 1) LVPWd (2D) 0.9 cm (0.6 - 1) LVIDd (2D) 3.7 cm (3.6 - 5.4) LVIDs (2D) 2.9 cm - LV FS (2D) 21 % (25 - 45) Aortic Annulus 1.7 cm (1.4 - 2.6) Ao root diameter (2D) 2.7 cm (2.1 - 3.5) Ascending Ao 2.9 cm (2.1 - 3.4) Aortic arch 2.4 cm (1.8 - 3.4) Descending Ao 0.4 cm - LA dimension (AP) 2D 4.3 cm (2.3 - 3.8) LAd ISD 4CH 5.1 cm (2.9 - 5.3) LA ISD 4CH W 4.1 cm (2.5 - 4.5) Name Value Normal Range LA ESV SP 4CH (A/L) 57 ml - LA ESV SP 2CH (A/L) 46 ml - LA ESV BP (A/L) 54 ml - LA ESV BP (A/L) index 37.41 ml/m2 - LA ESV SP 4CH (MOD) 48 ml - LA ESV SP 2CH (MOD) 44 ml - Name Value Normal Range MV E-wave Vmax 1 m/sec - MV deceleration time 151 msec - MV A-wave Vmax 0.9 m/sec - MV E:A ratio 1.11 ratio - LV septal e' Vmax 0.06 m/sec - LV lateral e' Vmax 0.06 m/sec - LV average e' Vmax 0.06 m/sec - LV E:e' septal ratio 16.67 ratio - LV E:e' lateral ratio 16.67 ratio - Name Value Normal Range AV Vmax 1.2 m/sec - AV VTI 30.3 cm - AV peak gradient 5.76 mmHg - AV mean gradient 3.04 mmHg - LVOT Vmax 0.9 m/sec - LVOT VTI 18 cm - LVOT peak gradient 3.4 mmHg - LVOT mean gradient 1.2 mmHg - Name Value Normal Range MR Vmax 5.9 m/sec - MR VTI 227.9 cm - Name Value Normal Range TR Vmax 3.2 m/sec - TR peak gradient 40 mmHg - RAP 8 mmHg - RVSP 48 mmHg - IVC diameter 1.8 cm - Name Value Normal Range PV Vmax 0.7 m/sec - PV peak gradient 1.83 mmHg -
[2018-08-07] MEDS ORDERED: Metolazone TAB* 5 MG PO STA (11:53)
[2018-08-07] MEDS ORDERED: Furosemide IV* 10 MG/ML 10 ML VIAL (100 MG) IV STA (11:53)
[2018-08-07] MEDS: Benzonatate CAP* 100 MG PO PRN (12:00)
[2018-08-07] MEDS ORDERED: Furosemide IV* 10 MG/ML 10 ML VIAL (100 MG) ONE (13:00)
--- NOTE | 2018-08-07 13:02 | RAD ---
INDICATION: Hypoxia COMPARISON: Most recent comparison chest x-ray is dated August 05, 2018 TECHNIQUE: Single AP view of the chest was obtained. FINDINGS: There is a mild degree of cardiomegaly. The pulmonary vasculature is engorged and indistinct. There are patchy densities obscuring the bilateral mid-level and lung bases. There is bilateral costophrenic angle blunting. Overall aeration is worse when compared to the previous chest x-ray. Visualized bones are normal for the patient's age. IMPRESSION: CHEST X-RAY FINDINGS ARE MOST CONSISTENT WITH CARDIOGENIC PULMONARY EDEMA WITH OVERALL WORSENING AERATION SINCE THE 2017 CHEST X-RAY AND DEVELOPMENT OF LIKELY BIBASILAR SMALL PLEURAL EFFUSIONS.
[2018-08-07] MEDS ORDERED: NIFEdipine ER TAB* 30 MG PO ONE (14:25)
[2018-08-07 15:03] LABS: ABS Basophils 0.1 10^3/ul (0-0.2); ABS Eosinophils 0.2 10^3/ul (0-0.6); ABS Lymphocytes 1.3 10^3/ul (1.0-4.8); ABS Monocytes 0.6 10^3/ul (0-0.8); ABS Neutrophils 5.7 10^3/ul (1.5-7.7); ABS Nucleated RBC 0 10^3/ul; Eosinophil % 2.7 % (0-6); Hematocrit 30 % (35-47); Hemoglobin 9.8 g/dl (12.0-16.0); Lymphocyte % 16.8 % (25-47); Mean Corpuscular HGB Conc 33 g/dl (31-36); Mean Corpuscular Hemoglobin 31 pg (27-31); Mean Corpuscular Volume 94 fL (80-97); Mean Platelet Volume 8.1 um3 (7.4-10.4); Nucleated Red Blood Cells % 0; Platelet Count 219 10^3/ul (150-450); Red Blood Count 3.22 10^6/ul (4.00-5.40); Red Cell Distribution Width 15 % (10.5-15); White Blood Count 7.9 10^3/ul (3.5-10.8)
[2018-08-07 15:13] LABS: EGFR Non-African American 5.9 (>60)
[2018-08-07] MEDS ORDERED: nitroGLYCERIN DRIP* 25,000 MCG/250 ML BTL ONE (15:33)
--- NOTE | 2018-08-07 15:36 | PN ---
Subjective Date of Service: 08/07/18 Interval History: reports feeling worse, states breathing is more difficult, Denies chest pain . Denies abd pain n/v/d. Nursing reports patient with low o2 sats, Oxygen increased to 10 liters face mask or sats 96%. Given extra dose of 60 mg of lasix IV , Metolazone 5 mg po, transferred to ICU. 1500 Patient and family updated on the need for transfer and agrees to transfer SBP 210 nitroglycerin drip start and is now a 13mcg - SBP 155 1800- patient accepted at [facility] in [place] - Dr. Radha Bailey report given Family History: Unchanged from Admission Social History: Unchanged from Admission Past Medical History: Unchanged from Admission Objective Active Medications: Acetaminophen (Tylenol Tab*) 650 mg PO Q4H PRN PRN Reason: FEVER/PAIN Last Admin: 08/07/18 08:28 Dose: 650 mg Al Hydrox/Mg Hydrox/Simethicone (Maalox Plus*) 30 ml PO Q6H PRN PRN Reason: INDIGESTION Aspirin (Aspirin 81 Mg Chew Tab*) 81 mg PO DAILY FOR[facility], [facility] Last Admin: 08/07/18 08:27 Dose: 81 mg Atorvastatin Calcium (Lipitor*) 40 mg PO DAILY [facility], [facility] Last Admin: 08/07/18 08:28 Dose: 40 mg Benzonatate (Tessalon Cap*) 100 mg PO BID PRN PRN Reason: COUGH Last Admin: 08/07/18 12:00 Dose: 100 mg Cinacalcet (Sensipar Tab*) 60 mg PO DAILY [facility], [facility] Last Admin: 08/07/18 08:27 Dose: 60 mg Dextrose (D50w Syringe 50 Ml*) 12.5 gm IV PUSH .FOR FS < 60 - SS PRN PRN Reason: FS < 60 Folic Acid (Folvite Tab*) 1 mg PO DAILY [facility], [facility] Last Admin: 08/07/18 08:29 Dose: 1 mg Furosemide (Lasix Iv*) 120 mg IV Q12H [facility] Heparin Sodium (Porcine) (Heparin Vial(*)) 5,000 units SUBCUT Q8HR [facility], [facility] Last Admin: 08/07/18 13:41 Dose: 5,000 units Hydralazine HCl (Apresoline Iv*) 10 mg IV SLOW PU Q6H PRN PRN Reason: SBP>180 Last Admin: 08/07/18 13:15 Dose: 10 mg Hydralazine HCl (Apresoline Tab*) 20 mg PO 0900,1400,2100 [facility] Last Admin: 08/07/18 13:42 Dose: 20 mg Hydroxyzine HCl (Atarax Tab*) 10 mg PO DAILY [facility] Last Admin: 08/07/18 08:27 Dose: 10 mg Insulin Glargine (Lantus(*)) 24 units SUBCUT BEDTIME [facility], [facility] Last Admin: 08/06/18 21:21 Dose: 24 units Insulin Human Lispro (Humalog*) 0 units SUBCUT AC [facility], [facility]; Protocol Last Admin: 08/07/18 12:26 Dose: 1 unit Levothyroxine Sodium (Synthroid Tab*) 100 mcg PO DAILY@0600 [facility], [facility] Last Admin: 08/07/18 05:38 Dose: 100 mcg Magnesium Hydroxide (Milk Of Magnesia Liq*) 30 ml PO Q4H PRN PRN Reason: CONSTIPATION Metoprolol Succinate (Toprol Xl Tab*) 25 mg PO 0900 [facility] Last Admin: 08/07/18 07:50 Dose: Not Given Metoprolol Succinate (Toprol Xl Tab*) 50 mg PO QPM [facility] Last Admin: 08/06/18 17:31 Dose: 50 mg Nifedipine (Procardia Xl Tab*) 90 mg PO 0900 [facility] Omeprazole (Prilosec Cap*) 20 mg PO DAILY [facility] Last Admin: 08/07/18 08:26 Dose: 20 mg Sevelamer Carbonate (Renvela Tab*) 1,600 mg PO PC [facility] Last Admin: 08/07/18 14:43 Dose: Not Given Vitamin B Complex/Vitamin E (B Complex-50*) 1 tab PO DAILY [facility] Last Admin: 08/07/18 08:29 Dose: 1 tab Vitamin E (Vitamin E Cap*) 400 unit PO BID [facility] Last Admin: 08/07/18 08:26 Dose: 400 unit Vital Signs - 8 hr 08/07/18 08/07/18 08/07/18 07:39 08:27 11:24 Temperature 98.0 F 97.7 F Pulse Rate 64 68 Respiratory 20 20 20 Rate Blood Pressure 189/66 129/41 (mmHg) O2 Sat by Pulse 95 91 Oximetry 08/07/18 08/07/18 08/07/18 12:44 12:45 12:46 Temperature Pulse Rate 63 Respiratory 12 16 16 Rate Blood Pressure 156/71 178/162 (mmHg) O2 Sat by Pulse 99 Oximetry 08/07/18 08/07/18 08/07/18 12:49 13:00 13:01 Temperature Pulse Rate 65 63 64 Respiratory 24 23 20 Rate Blood Pressure 186/68 189/69 (mmHg) O2 Sat by Pulse 98 99 99 Oximetry 08/07/18 08/07/18 08/07/18 13:15 13:30 13:39 Temperature 97.9 F Pulse Rate 63 67 Respiratory 18 18 16 Rate Blood Pressure 193/69 202/74 186/68 (mmHg) O2 Sat by Pulse 99 98 Oximetry 08/07/18 08/07/18 08/07/18 13:45 14:00 14:15 Temperature Pulse Rate Respiratory 22 21 17 Rate Blood Pressure 197/70 201/70 199/81 (mmHg) O2 Sat by Pulse Oximetry 08/07/18 08/07/18 14:30 15:00 Temperature Pulse Rate 68 Respiratory 16 17 Rate Blood Pressure 186/70 187/80 (mmHg) O2 Sat by Pulse 99 Oximetry Oxygen Devices in Use Now: Nasal Cannula Appearance: Moderate respiratory distress, alert, color pink Eyes: No Scleral Icterus Ears/Nose/Mouth/Throat: Clear Oropharnyx, Mucous Membranes Moist Neck: NL Appearance and Movements; NL JVP, Trachea Midline Respiratory: Symmetrical Chest Expansion and Respiratory Effort, - - Lung sounds diminshed with crackles up 1/2 bilat Cardiovascular: No Edema, - - JVD grossly positive, s1,s2 regular Abdominal: NL Sounds; No Tenderness; No Distention Lymphatic: No Cervical Adenopathy Extremities: No Clubbing, Cyanosis Skin: No Rash or Ulcers Neurological: Alert and Oriented x 3 Nutrition: Taking PO's Result Diagrams: 08/07/18 13:00 08/07/18 15:43 Microbiology and Other Data: Microbiology 08/05/18 15:22 Aerobic Blood Culture - Preliminary Blood Venous No Growth Day 2 Anaerobic Blood Culture - Preliminary No Growth Day 2 08/06/18 18:23 Nasal Screen MRSA (PCR) - Final Nasal Mrsa Not Detected 08/05/18 15:28 Aerobic Blood Culture - Preliminary Blood Venous No Growth Day 1 Anaerobic Blood Culture - Preliminary No Growth Day 1 Assess/Plan/Problems-Billing Assessment: Ms. Brady is a 77 y.o female with a PMHX of ESRD on dialysis, DM, HTN, who presented to the ER for increased shortness of breath. Patient did receive dialysis on wednesday a scheduled. Chest x ray in the ER show pulmonary edema. Repeat cxr on 08/07/18 increased pulmonary edema with new bilat small pleural effusions - Patient Problems (1) SOB (shortness of breath) Current Visit: No Status: Acute Priority: Medium Code(s): R06.02 - SHORTNESS OF BREATH SNOMED Code(s): 149824056 Comment: SOB worse today. o2 increased to 10 liters via face mask. CXR worsening pulmonary edema with bilat effusions - echo - EF 55-60% with moderate MR - fluid restriction to 1500 cc/ day, daily weights - 2 gm sodium/ 2 gram potassium diet - Lasix IV increased to 120 mg BID and patient was given an extra dose of 60 mg IV as per Dr. Dong - Metolazone 5 mg po given - as per recommendation of Dr. Dong - Continues to have minimal urinary output dispite increase dose of lasix and dose of metolazone. - Dr. Dong updated and is recommending transfer for hemodiaylsis - will transfer (2) HTN (hypertension) Current Visit: No Status: Acute Code(s): I10 - ESSENTIAL (PRIMARY) HYPERTENSION SNOMED Code(s): 15008894 Comment: hydralazine at 20 mg po TID and 10 mg IV PRN hypertension BP elevated- SBP 210 systolic will start nitroglycerin drip at 5 mcg and titrate to SBP less than 180 but above 120 (3) Diabetes Current Visit: No Status: Chronic Priority: Medium Code(s): E11.9 - TYPE 2 DIABETES MELLITUS WITHOUT COMPLICATIONS SNOMED Code(s): 03198177 Comment: [facility] [place] qachs c/w low dose lispro Lantus 24 units- home dose is 24-28 units at HS (4) ESRD (end stage renal disease) on dialysis Current Visit: No Status: Chronic Priority: Medium Code(s): N18.6 - END STAGE RENAL DISEASE; Z99.2 - DEPENDENCE ON RENAL DIALYSIS SNOMED Code(s): 031217066 Comment: - had HD on wednesday08/05/18- due on wednesday for next treatment -Dr. dong aware of admission (5) DVT prophylaxis Current Visit: Yes Status: Acute Code(s): NNQ7171 - SNOMED Code(s): 655927134 (6) Full code status Current Visit: Yes Status: Acute Code(s): Z78.9 - OTHER SPECIFIED HEALTH STATUS SNOMED Code(s): 896560864 Status and Disposition: [facility] - NO beds [facility] - Waiting list- no beds [facility] - no beds [facility] - Service not available [facility] - NO ICU bed [facility] - no beds will transfer to [facility] for HD
[2018-08-07] MEDS ORDERED: nitroGLYCERIN DRIP* 25,000 MCG/250 ML BTL IVPB SCH (17:00)
[2018-08-07] MEDS: Metoprolol Succinate XL TAB* 50 MG PO SCH (17:39)
[2018-08-07 19:00] VITALS: BP 159/67
[2018-08-07] MEDS ORDERED: Furosemide IV* 10 MG/ML 10 ML VIAL (100 MG) IV SCH (21:00)
--- NOTE | 2018-08-07 23:12 | TRS ---
CC: Brandan Cates MD; Erica Vidal MD * TRANSFER SUMMARY: DATE OF ADMISSION: 08/05/18 DATE OF TRANSFER: 08/07/18 ATTENDING PHYSICIAN: Beulah Edmondson DO * (dictated by Maribell Christianson NP). PRIMARY CARE PROVIDER: Erica Vidal MD PRIMARY DIAGNOSES: 1. Pulmonary edema, acute hypoxic respiratory failure. 2. End-stage renal disease, on hemodialysis. SECONDARY DIAGNOSES: 1. Hypertension. 2. Hypothyroid. 3. Diabetes. STUDIES COMPLETED WHILE IN THE HOSPITAL: The patient had a chest x-ray on 08/05. Radiologist impression was pulmonary edema with small bibasilar pleural effusions. Repeat chest x-ray on 08/07/18. Radiologist impression: Chest x- ray findings are most consistent with cardiogenic pulmonary edema with overall worsening aeration since 08/05/18 chest x-ray and development of likely bibasilar small pleural effusions. She had a transthoracic echocardiogram completed. Conclusion: Left ventricular chamber is normal size and there is a normal left ventricular systolic function. The estimated ejection fraction is 55% to 60%. Normal left ventricular diastolic filling is observed. The left atrium is mildly dilated. The right atrium is mildly dilated. There is moderate mitral regurgitation. There is mild to moderate tricuspid regurgitation. There is evidence of mild pulmonary hypertension. The aortic valve is trileaflet. There is no evidence of aortic regurgitation. There is no evidence of aortic stenosis. She had routine lab work drawn. Hemoglobin and hematocrit on 08/07/18 was 9.8 and 30. Her ESR was 82. INR was 1.02. On , sodium was 134, chloride was 95, potassium was 4.8, carbon dioxide was 29 and anion gap was 10. BUN was 50, creatinine 6.82. Glucose was 138. C- reactive protein was 27.11. She did have a urinalysis: Specific gravity was 1.009, pH was 8, urine protein was 3+. Urine ketones, blood, nitrites, bilirubin, urobilinogen were all negative. Urine leukocyte esterase was 2+, urine wbc's were 3+, rbc's 1+. Urine squamous epithelial cells were present. Urine bacteria was absent. Urine glucose was 1+. The patient has been afebrile throughout her hospitalization. DISCHARGE MEDICATIONS: 1. Nitro drip at 13 mcg, titrated for systolic blood pressure greater than 180. 2. Acetaminophen 650 mg p.o. q.4 hours as needed for pain. 3. Aspirin 81 mg p.o. daily. 4. Atorvastatin 40 mg p.o. daily. 5. Tessalon Perles 100 mg p.o. b.i.d. p.r.n. cough. 6. Sensipar 60 mg p.o. daily. 7. Folic acid 1 mg p.o. daily. 8. Furosemide 120 mg IV q.12 hours. 9. Heparin 5000 units subcu q.8 hours. 10. Hydralazine 10 mg IV q.6 hours for systolic blood pressure greater than 180. 11. Hydralazine 20 mg p.o. t.i.d. 12. Atarax 10 mg p.o. daily. 13. Lantus 24 units subcu at bedtime. 14. Lispro sliding scale. 15. Levothyroxine 100 mcg p.o. daily. 16. Metoprolol 25 mg p.o. q.a.m. 17. Metoprolol succinate 50 mg p.o. q.p.m. 18. Procardia 90 mg p.o. at 0900. 19. Omeprazole 20 mg p.o. daily. 20. Sevelamer carbonate 1600 mg p.o. p.c. 21. Vitamin B complex 1 tab p.o. daily. 22. Vitamin E 400 units p.o. b.i.d. HOME MEDICATIONS: Prior to admission were: 1. Lantus 24 units subcu at bedtime. 2. Metoprolol succinate XL 50 mg p.o. q.p.m. 3. Metoprolol succinate 25 mg p.o. q.a.m. 4. Nifedipine 60 mg p.o. daily. 5. Sensipar 60 mg p.o. daily. 6. Atorvastatin 40 mg p.o. daily. 7. Atarax 10 mg p.o. daily. 8. Lispro 4 units subcu at 1700. 9. Lispro 2 units subcu at noon. 10. Sevelamer 1600 mg p.o. p.c. 11. Aspirin 81 mg p.o. daily. 12. Vitamin E 400 units p.o. b.i.d. 13. Folic acid/B complex. 14. Nephro-Juan Carlos 1 tab p.o. daily. 15. Omeprazole 20 mg p.o. daily. 16. Hydralazine 20 mg p.o. t.i.d. 17. Levothyroxine 100 mcg p.o. daily. 18. Furosemide 40 mg p.o. daily. HISTORY OF PRESENT ILLNESS AND HOSPITAL COURSE: Ms. Brady is a 77-year-old female who carries a past medical history significant for chronic end-stage renal disease, on chronic hemodialysis Wednesday, Wednesday and Wednesday; hypertension; hypothyroid who presented to the emergency room on 08/05/18 with increased shortness of breath. She became short of breath on , the day prior to her normal dialysis and that progressively got worse. She did receive her dialysis on 08/05/18. She does report that during dialysis, she started to have improvement of her symptoms of shortness of breath, but does report at the end of dialysis she again felt short of breath, so she presented to the emergency room for further evaluation. The patient states that the night prior to her admission, she had difficulty sleeping and was unable to lie in her bed. She tried sitting up in the chair to assist in ease of her breathing with minimal relief. She denies any recent sick contacts. Denies any nausea, vomiting, diarrhea. Denies any swelling. Denies any history of congestive heart failure. The patient does report increased shortness of breath with exertion since , 08/04/18. She reports prior to , she was not O2 dependent. Given her concerns of increased shortness of breath and hypoxia on room air, we were asked to see and evaluate her by the emergency room for admission. While in the emergency room, she had routine lab work. Initially her potassium was shown to be 3.0. She was given potassium in the emergency room, repeated the next day, her potassium was 4.4. Her chest x-ray as reported above and she was found to have room air oxygen saturation of 98%, which she has normal oxygen levels prior to admission and does not require home O2. Due to her shortness of breath and hypoxia, she was admitted to the hospital. While in the hospital, we changed her Lasix from 40 mg p.o. to Lasix IV. We titrated the dose up to 120 mg IV q.12 hours. We added metolazone 5 mg p.o., we placed her on O2 of 10 L face mask and she is able to maintain O2 saturation at 96% to 97% with supplemental oxygen. During the hospitalization, she had progressively worsening shortness of breath. On 08/07/18, at approximately 8 a.m., the patient reported feeling increased shortness of breath. Her oxygen saturations dropped and she was placed on a face mask at that time. She was transferred to the ICU. Her systolic blood pressure was as high as 210. She was given an extra dose of Lasix 60 mg at that time. The patient does report that she does make some urine at home. She has had 11 mL of urine production after the Lasix. The patient remained short of breath. She currently is on O2 of 6 to 8 L via face mask. Her O2 saturation is 96% to 97%. She currently is on a nitro drip at 13 mcg and her systolic blood pressure has decreased to 155. Dr. Cates , her current courtesy clerk was updated on her condition and recommended transfer to a higher level of care where she may receive hemodialysis emergently. Several [facility] were contacted and no bed was available. [facility] was contacted and accepted the patient. John Bailey MD has accepted the patient. She will be transferred to [place] ICU, room 3004. CONDITION AT THE TIME OF TRANSFER: Guarded. Last set of vitals; blood pressure 163/60, heart rate is 69, respirations are 21 to 24, O2 saturation is 94% to 99% on 6 to 8 L nasal cannula. Her last temperature was 97.3. The patient will be transferred to [facility] in [place] for emergent hemodialysis. TIME SPENT: Time spent on this transfer was approximately 90 minutes, greater than half that time was spent with the patient discussing her transfer plans and arranging for transportation. Condition again on discharge is guarded. I have discussed this with my attending, Dr. Beulah Edmondson, and she is in agreement with my plan. MARIBELL CHRISTIANSON, SPLICER MACHINE OPERATOR [id number]/[facility] #: [id number] [place]
[2018-08-08] MEDS ORDERED: NIFEdipine ER TAB* 30 MG PO SCH (09:00)
== END 2018-08-07 19:00 | disposition short-term general hospital (02) | DRG 189 ==
LOC: ED 14:35 → MEDTELE 16:42 → OBSVTOIN 16:42 → ICU 08-07 12:46
PROVIDERS: ADMIT Internal Medicine; ATTEND Internal Medicine
PROC: 05H533Z Insertion of Infusion Device into Right Subclavian Vein, Percutaneous Approach (ICD-10-PCS; principal; 2018-08-07)
DX: J81.0 Acute pulmonary edema (principal); J96.01 Acute respiratory failure with hypoxia; N18.6 End stage renal disease; I12.0 Hypertensive chronic kidney disease with stage 5 chronic kidney disease or end stage renal disease; J90 Pleural effusion, not elsewhere classified; E11.22 Type 2 diabetes mellitus with diabetic chronic kidney disease; Z99.2 Dependence on renal dialysis; E03.9 Hypothyroidism, unspecified; I08.1 Rheumatic disorders of both mitral and tricuspid valves; I27.20 Pulmonary hypertension, unspecified; Z79.82 Long term (current) use of aspirin; Z79.4 Long term (current) use of insulin; Z79.899 Other long term (current) drug therapy; Z88.7 Allergy status to serum and vaccine; Z88.8 Allergy status to other drugs, medicaments and biological substances; Z91.048 Other nonmedicinal substance allergy status; Z83.3 Family history of diabetes mellitus; Z80.42 Family history of malignant neoplasm of prostate; Z80.0 Family history of malignant neoplasm of digestive organs; Z80.1 Family history of malignant neoplasm of trachea, bronchus and lung; Z87.891 Personal history of nicotine dependence
CPT/HCPCS: 36415; 71045; 71046; 80048; 80053; 80061; 81003; 81015; 83605; 83880; 84484; 85025; 85610; 85652; 85730; 86141; 87040; 87086; 87641; 93005; 93306; 96374; 96375; 99284; A9270-GY; J0360; J1644; J1940